=== PATIENT | female | born 1990 | race Asian ===

== ENCOUNTER 2024-07-03 11:14 | Inpatient (IN) | payer OTHER ==
[~2024-07-03] VITALS: Ht 157.5 cm; Wt 64.9 kg
[2024-07-20] VITALS (8 sets, daily range): BP systolic 92–998; BP diastolic 61–91
[2024-07-20] MEDS ORDERED: RINGERS SOLUTION,LACTATED 1,000 ML IV SCH (05:45)
[2024-07-20] MEDS ORDERED: OXYTOCIN 500 ML IV ONE (07:00)
[2024-07-20 07:44] LABS: PH,URINE 6.5 (5.0-8.0); URINE APPEARANCE Cloudy; URINE BILIRRUBIN Negative (NEGATIVE); URINE BLOOD Small; URINE COLOR Yellow; URINE KETONE Trace (NEGATIVE); URINE LEUKOCYTE Trace; URINE NITRATE Negative; URINE PROTEIN 30 (NEGATIVE)
[2024-07-20 07:45] LABS: HEMATOCRIT 39.3 % (36.0-45.00); HEMOGLOBIN 13.5 g/dL (12.0-15.00); MEAN CELL VOLUME 86.3 fL (80.00-100.00); MEAN CORPUSCULAR HEMOGLOBIN 29.7 pg (27.00-32.0); MEAN CORPUSCULAR HGB CONC 34.4 g/dl (32.0-36.0); PLATELET COUNT 301 K/uL (150-450); RED BLOOD COUNT 4.55 M/uL (4.00-6.00); RED CELL DISTRIBUTION WIDTH 14.5 % (11.5-14.5)
[2024-07-20 07:48] LABS: URINE BACTERIA 1125.8 uL (0.0-1933); URINE EPITHELIAL CELLS 117.3 uL (0.0-38.8); URINE RBC 36.9 uL (0.0-20.8); URINE WBC 70.2 uL (0.0-23.2)
[2024-07-20 07:55] LABS: INR < 0.93; PARTIAL THROMBOPLASTIN TIME 26.9 SECONDS (22.0-34.0); PROTHROMBIN TIME 9.7 SECONDS (9.0-11.5)
[2024-07-20] MEDS ORDERED: PROMETHAZINE HCL 25 MG/ML AMPUL IV STA (08:07)
[2024-07-20] MEDS ORDERED: MEPERIDINE HCL/PF 50 MG/ML VIAL IV STA (08:07)
[2024-07-20 08:16] LABS: URINE CAST 0.14 uL (0.0-1.40); URINE GLUCOSE 250 MG/DL (NEGATIVE)
[2024-07-20 08:17] LABS: URINE CRYSTALS MANY /HPF
[2024-07-20 09:01] LABS: BILIRUBIN TOTAL 0.21 mg/dL (0.3-1.2); CALCIUM 8.4 mg/dL (8.5-10.1); CREATININE SERUM 0.52 mg/dL (0.55-1.02); GFR 136.65; GLOBULINA 3.3 G/DL (2.4-3.5); POTASSIUM 4.27 mEq/L (3.5-5.1); TOTAL PROTEIN 6.3 gm/dL (6.4-8.2)
[2024-07-20] MEDS ORDERED: ACETAMINOPHEN 325 MG TABLET PO PRN (11:00)
[2024-07-20] MEDS ORDERED: OxyCODONE HCL/APAP UD (PERCOCET) PO PRN (11:00)
[2024-07-20] MEDS ORDERED: CHLORHEXIDINE GLUCONATE 120 ML BOTTLE TOP ONE (11:00)
[2024-07-20] MEDS ORDERED: LIDOCAINE HCL 1% 10ML VIAL IJ ONE (11:00)
[2024-07-20] MEDS ORDERED: ERYTHROMYCIN BASE OPHT 1GM EACH TUBE OP ONE (11:00)
[2024-07-20] MEDS ORDERED: OXYTOCIN 20 UNITS/1000ML RL PIGGYBAG IV ONE (11:00)
[2024-07-20] MEDS ORDERED: BENZOCAINE/MENTHOL 90 ML BOTTLE TOP SCH (13:00)
[2024-07-20] MEDS ORDERED: HYDROCORTISONE 2.5% 30 GM TUBE RECTAL SCH (17:00)
[2024-07-21] VITALS: BP 90/55
[2024-07-21 00:57] LABS: HEMATOCRIT 35.8 % (36.0-45.00); MEAN CELL VOLUME 86.7 fL (80.00-100.00); MEAN CORPUSCULAR HGB CONC 34.1 g/dl (32.0-36.0); PLATELET COUNT 259 K/uL (150-450); RED BLOOD COUNT 4.13 M/uL (4.00-6.00); RED CELL DISTRIBUTION WIDTH 14.5 % (11.5-14.5)
[2024-07-21 01:02] LABS: HEMOGLOBIN 12.2 g/dL (12.0-15.00); MEAN CORPUSCULAR HEMOGLOBIN 29.5 pg (27.00-32.0)
[2024-07-21 08:56] VITALS: BP 107/72
[2024-07-21 15:49] VITALS: BP 92/53
[2024-07-22 00:03] VITALS: BP 98/66
[2024-07-22 08:00] VITALS: BP 103/70
== END 2024-07-22 11:34 | disposition home or self-care (01) | DRG 807 ==
LOC: LDR 07-20 05:43 → O/R 07-20 09:20 → LDR 07-20 09:21 → OB/GYN 07-20 11:08
PROVIDERS: ADMIT Specialist; ATTEND Specialist
PROC: 10E0XZZ Delivery of Products of Conception, External Approach (ICD-10-PCS; principal; 2024-07-20)
PROC: 0KQM0ZZ Repair Perineum Muscle, Open Approach (ICD-10-PCS; 2024-07-20)
PROC: 0W8NXZZ Division of Female Perineum, External Approach (ICD-10-PCS; 2024-07-20)
PROC: 4A1HXCZ Monitoring of Products of Conception, Cardiac Rate, External Approach (ICD-10-PCS; 2024-07-20)
DX: O70.1 Second degree perineal laceration during delivery (principal); Z37.0 Single live birth; Z3A.39 39 weeks gestation of pregnancy; Z20.822 Contact with and (suspected) exposure to COVID-19